=== PATIENT | male | born 1960 | race African-American/Black ===

== ENCOUNTER 2017-12-24 21:07 | Emergency (ER) | payer MEDICAID ==
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
[2017-12-24] MEDS ORDERED: OXYCODONE/APAP 5/325 TAB PO ONE (21:29)
[2017-12-24] MEDS ORDERED: IBUPROFEN 600 MG TAB PO ONE (21:29)
[2017-12-24 23:30] VITALS: BP 137/90
== END 2017-12-24 23:32 | disposition home or self-care (01) ==
LOC: EDUNIT#
DX: S22.41XD Multiple fractures of ribs, right side, subsequent encounter for fracture with routine healing (principal); S22.20XD Unspecified fracture of sternum, subsequent encounter for fracture with routine healing; V49.9XXD Car occupant (driver) (passenger) injured in unspecified traffic accident, subsequent encounter